=== PATIENT | male | born 1995 | race Caucasian/White ===

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

== ENCOUNTER 2017-04-11 08:54 | Emergency (ER) | payer OTHER ==
[~2017-04-11] VITALS: Ht 172.7 cm; Wt 88.0 kg
[~2017-04-11 08:54] MED LIST changes: +NAPROSYN500 MG PO; +VERTICALM25 MG PO
[2017-04-11 10:43] LABS: HEMATOCRIT 43.3 % (38.0-50.0); HEMOGLOBIN 15.4 G/DL (12.5-16.6); MCHC 35.6 G/DL (30.0-36.0); MCV 87.3 FL (86-99); PLATELET COUNT 202 K/uL (156-360); RBC DIS.WIDTH-CV 12.1 % (11.8-14.6); RBC DIS.WIDTH-SD 38.8 % (39-53); RED BLOOD COUNT 4.96 M/uL (4.00-5.50); WHITE BLOOD COUNT 5.6 K/uL (4.1-10.2)
[2017-04-11 10:55] LABS: CHLORIDE 108 mEq/L (99-109); POTASSIUM 4.3 mEq/L (3.7-5.4); SODIUM 141 mEq/L (136-147)
[2017-04-11 10:57] LABS: GLUCOSE 95 mg/dL (70-99)
[2017-04-11 11:00] LABS: CREATININE 1.1 mg/dL (0.6-1.3); GFR ESTIMATE (CALCULATED) > 59 mL/min/ (58.99-99999)
[2017-04-11 11:01] LABS: UREA NITROGEN (BUN) 9 mg/dL (9-23)
[2017-04-11 11:08] LABS: TROP-I INTERPRETATION NEGATIVE; TROPONIN-I < 0.01 ng/mL (0.0-0.30)
[2017-04-11 12:07] LABS: TROP-I INTERPRETATION NEGATIVE; TROPONIN-I < 0.01 ng/mL (0.0-0.30)
[2017-04-11 12:30] VITALS: BP 126/72
== END 2017-04-11 12:32 | disposition home or self-care (01) ==
LOC: EME 08:54
PROVIDERS: Nurse Practitioner Family
DX: R07.9 Chest pain, unspecified (principal); R42 Dizziness and giddiness; F17.200 Nicotine dependence, unspecified, uncomplicated; F32.9 Major depressive disorder, single episode, unspecified
CPT/HCPCS: 71046; 80048; 84484; 85027; 93005; 99281; 99283